=== PATIENT | male | born 1980 ===

== ENCOUNTER 2024-10-28 22:15 | Inpatient (IN) | payer SELFPAY ==
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
[2024-10-28 23:00] VITALS: BP 168/86; PULSE 83; RESP 16; TEMP 36.9; O2SAT 97
[2024-10-28 23:15] VITALS: BMI 38.7
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
[2024-10-29 07:25] VITALS: BP 143/81; PULSE 80; RESP 16; TEMP 36.8; O2SAT 92
[2024-10-29 08:10] LABS: Hemoglobin A1C 131.6022 umol/L; Total Hemoglobin (HGBA1C) 4053.8948 umol/L
[2024-10-29 08:12] LABS: Cholesterol 172 mg/dL (<200); HDL Cholesterol 53 mg/dL (>40); Magnesium 1.9 mg/dL (1.6-2.6); Triglycerides 79 mg/dL (<150)
[2024-10-29 08:33] LABS: Free T4 (Free Thyroxine) 0.83 ng/dL (0.71-1.85); Thyroid Stimulating Hormone 1.57 uIU/mL (0.32-4.0)
[2024-10-29 08:45] LABS: Folate 12.8 ng/mL (> or = 4.0); Vitamin B12 483 pg/mL (200-900)
[2024-10-29 08:47] VITALS: BP 174/99; PULSE 95; RESP 17; TEMP 36.9; O2SAT 95
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
== END 2024-10-29 19:42 | disposition home or self-care (01) | DRG 897 ==
PROVIDERS: Clinical Nurse Specialist Psychiatric/Mental Health, Adult; Admitting Provider Psychiatry & Neurology Psychiatry; Visit Provider Psychiatry & Neurology Psychiatry
DX: F19.959 Other psychoactive substance use, unspecified with psychoactive substance-induced psychotic disorder, unspecified (principal); F17.210 Nicotine dependence, cigarettes, uncomplicated; Z71.6 Tobacco abuse counseling; F14.10 Cocaine abuse, uncomplicated; F12.90 Cannabis use, unspecified, uncomplicated
CPT/HCPCS: 36415; 80061; 82607; 82746; 83036; 83735; 84439; 84443

== ENCOUNTER → 2024-10-28 22:15 | Outpatient (BNV) | payer SELFPAY | PROVIDERS: Admitting Provider Psychiatry & Neurology Psychiatry; Visit Provider Psychiatry & Neurology Psychiatry | DX: F14.10 Cocaine abuse, uncomplicated (principal); F19.959 Other psychoactive substance use, unspecified with psychoactive substance-induced psychotic disorder, unspecified; F12.90 Cannabis use, unspecified, uncomplicated; F17.200 Nicotine dependence, unspecified, uncomplicated | CPT/HCPCS: 90792; 99499 ==

== ENCOUNTER → 2024-10-28 22:15 | Outpatient (BNV) | payer SELFPAY | PROVIDERS: Admitting Provider Psychiatry & Neurology Psychiatry; Visit Provider Physician Assistant | DX: Z00.8 Encounter for other general examination (principal); F19.90 Other psychoactive substance use, unspecified, uncomplicated; F17.200 Nicotine dependence, unspecified, uncomplicated | CPT/HCPCS: 99222 ==